=== PATIENT | female | born 1970 | race Caucasian/White ===

== ENCOUNTER → 2023-10-24 | Outpatient (CLI) | payer BC, OTHER ==
[2023-10-24 13:48] LABS: HEMATOCRIT 42.3 % (36.0-47.0); HEMOGLOBIN 13.7 g/dl (12.0-15.5); MEAN CORPUSCULAR HEMOGLOBIN 28.8 pg (27.0-33.0); MEAN CORPUSCULAR HGB CONC 32.4 g/dl (32.0-36.5); MEAN CORPUSCULAR VOLUME 88.9 fl (80.0-96.0); PLATELET COUNT, AUTOMATED 474 10^3/uL (150-450); RED BLOOD COUNT 4.76 10^6/uL (4.00-5.40); WHITE BLOOD COUNT 12.3 10^3/uL (4.0-10.0)
[2023-10-24 14:49] LABS: ALKALINE PHOSPHATASE 107 U/L (46-116); ALT/SGPT 45 U/L (7.0-40); AST/SGOT 23 U/L (<34); BILIRUBIN,TOTAL 0.5 MG/DL (0.3-1.2); BLOOD UREA NITROGEN 24 MG/DL (9-23); CALCIUM LEVEL 10.7 MG/DL (8.5-10.1); CARBON DIOXIDE LEVEL 27 MMOL/L (20-31); CHLORIDE LEVEL 99 MMOL/L (98-107); CHOLESTEROL LEVEL 211 MG/DL (<200); CHOLESTEROL RISK RATIO 4.64 (<5); CREATININE FOR GFR 0.73 MG/DL (0.55-1.30); FERRITIN 150.7 NG/ML (7.3-270.7); GLOMERULAR FILTRATION RATE > 60.0 (>51); GLUCOSE, FASTING 477 MG/DL (60-100); HDL CHOLESTEROL 45.4 MG/DL (>40); LDL CHOLESTEROL 118.2 MG/DL (<100); NON-HDL-C 165.6 MG/DL; POTASSIUM SERUM 5.1 MMOL/L (3.5-5.1); SODIUM LEVEL 132 MMOL/L (136-145); THYROID STIMULATING HORMONE 2.076 uIU/ML (0.55-4.78); TOTAL PROTEIN 8.2 G/DL (5.7-8.2); TRIGLYCERIDES LEVEL 237 MG/DL (<150)
[2023-10-24 15:04] LABS: HEMOGLOBIN A1c > 14.0 % (4.0-6.0)
== END ==
LOC: M PLALAB 11:50
PROVIDERS: ATTEND Family Medicine
DX: G25.81 Restless legs syndrome (principal)

== ENCOUNTER → 2024-02-15 | Outpatient (CLI) | payer OTHER | LOC: M RAD 10:06 | PROVIDERS: ATTEND Family Medicine | DX: Z87.891 Personal history of nicotine dependence (principal) ==

== ENCOUNTER 2024-04-10 09:14 | Day surgery (SDC) | payer OTHER ==
[~2024-04-10] VITALS: Ht 170.2 cm; Wt 96.4 kg
[~2024-04-10 09:14] MED LIST: ALBU8.5H INH; AMIT25TA19 PO; AMLO2.5T3 PO; ASPI-226 PO; B-12100010 PO; BLOO-217; CYCL5TAB PO; GABA-282 PO; INSU100I24 SC; LINZ145C PO; MONT10TA97 PO; NS 1,000 ML IV ONE; OMEG10002 PO; OMEP40CA4 PO; ONDA-282 PO; ROPI2TAB46 PO; ROSU40TA63 PO; TELM1TAB35 PO; TOUJ300I2 SC; TRUL10IN SC; XIGD1TAB3 PO; propofoL 200 MG/20 ML VIAL As Ordered ONE
[2024-04-10] MEDS ORDERED: INSULIN LISPRO (NovoLOG) PER UNIT SC PRN (10:20)
[2024-04-10] MEDS ORDERED: LIDOCAINE 2% 100MG/5ML SDV (FOR ANES.) As Ordered ONE (11:15)
[2024-04-10] MEDS ORDERED: ONDANSETRON 4MG 2ML VIAL As Ordered ONE (11:15)
[2024-04-10 11:36] VITALS: TEMP 98
[2024-04-10 12:00] VITALS: BP 175/84; O2SAT 100
== END 2024-04-10 12:13 | disposition home or self-care (01) ==
LOC: M OPP 09:14
PROVIDERS: ATTEND Internal Medicine Gastroenterology
DX: Z86.010 Personal history of colon polyps (principal); K63.5 Polyp of colon; Z87.891 Personal history of nicotine dependence; E11.9 Type 2 diabetes mellitus without complications; Z79.02 Long term (current) use of antithrombotics/antiplatelets; Z79.4 Long term (current) use of insulin; Z79.52 Long term (current) use of systemic steroids; Z79.82 Long term (current) use of aspirin; Z79.899 Other long term (current) drug therapy; Z88.5 Allergy status to narcotic agent; Z91.040 Latex allergy status
CPT/HCPCS: 45380; 88305; J2405

== ENCOUNTER → 2024-06-13 | Outpatient (REF) | payer OTHER ==
[~2024-06-13] MED LIST changes: -NS 1,000 ML IV ONE; -propofoL 200 MG/20 ML VIAL As Ordered ONE
== END ==
LOC: M SFHCPLAZ 09:53
PROVIDERS: ATTEND Family Medicine
DX: Z12.4 Encounter for screening for malignant neoplasm of cervix (principal)

== ENCOUNTER → 2024-07-18 | Outpatient (CLI) | payer OTHER ==
[~2024-07-18] MED LIST changes: -ROSU40TA63 PO; +ROSU40TA81 PO
[2024-07-18 10:08] LABS: BASO # 0.1 10^3/uL (0.0-0.2); BASO % 0.8 % (0.0-1.0); EOS # 0.1 10^3/uL (0.0-0.5); EOS % 1.1 % (0.0-3.0); HEMATOCRIT 40.8 % (36.0-47.0); HEMOGLOBIN 13.2 g/dl (12.0-15.5); LYMPH # 1.9 10^3/uL (1.5-5.0); LYMPH % 20.4 % (24.0-44.0); MEAN CORPUSCULAR HEMOGLOBIN 29.8 pg (27.0-33.0); MEAN CORPUSCULAR HGB CONC 32.4 g/dl (32.0-36.5); MEAN CORPUSCULAR VOLUME 92.1 fl (80.0-96.0); MONO # 0.9 10^3/uL (0.0-0.8); MONO % 9.4 % (2.0-8.0); NEUTROPHILS # 6.3 10^3/uL (1.5-8.5); PLATELET COUNT, AUTOMATED 391 10^3/uL (150-450); RED BLOOD COUNT 4.43 10^6/uL (4.00-5.40); WHITE BLOOD COUNT 9.4 10^3/uL (4.0-10.0)
[2024-07-18 10:38] LABS: HEMOGLOBIN A1c > 14.0 % (4.0-6.0)
[2024-07-18 10:43] LABS: ALBUMIN 3.4 G/DL (3.2-5.2); ALKALINE PHOSPHATASE 164 U/L (46-116); ALT/SGPT 44 U/L (7.0-40); AST/SGOT 31 U/L (<34); BILIRUBIN,TOTAL 0.3 MG/DL (0.3-1.2); BLOOD UREA NITROGEN 15 MG/DL (9-23); CALCIUM LEVEL 10.1 MG/DL (8.5-10.1); CARBON DIOXIDE LEVEL 26 MMOL/L (20-31); CHLORIDE LEVEL 98 MMOL/L (98-107); CREATININE FOR GFR 0.66 MG/DL (0.55-1.30); GLOMERULAR FILTRATION RATE > 60.0 (>51); GLUCOSE, FASTING 425 MG/DL (60-100); POTASSIUM SERUM 4.5 MMOL/L (3.5-5.1); SODIUM LEVEL 131 MMOL/L (136-145); TOTAL PROTEIN 7.1 G/DL (5.7-8.2)
== END ==
LOC: M PLALAB 08:17
PROVIDERS: ATTEND Family Medicine
DX: D75.839 Thrombocytosis, unspecified (principal); E11.65 Type 2 diabetes mellitus with hyperglycemia; I10 Essential (primary) hypertension; Z12.4 Encounter for screening for malignant neoplasm of cervix

== ENCOUNTER → 2024-07-18 | Outpatient (CLI) | payer OTHER | LOC: M WHC 06:44 | PROVIDERS: ATTEND Family Medicine | DX: E04.1 Nontoxic single thyroid nodule (principal); R93.5 Abnormal findings on diagnostic imaging of other abdominal regions, including retroperitoneum ==

== ENCOUNTER 2024-10-19 15:50 | Inpatient (IN) | payer OTHER ==
[~2024-10-19] VITALS: Ht 170.2 cm; Wt 92.5 kg
[~2024-10-19 15:50] MED LIST changes: -CYCL5TAB PO; +CYCL5TAB4 PO; +GABA-1172 PO; -GABA-282 PO
[2024-10-19 16:58] LABS: BASO # 0.1 10^3/uL (0.0-0.2); BASO % 0.8 % (0.0-1.0); EOS % 0.2 % (0.0-3.0); HEMATOCRIT 45.8 % (36.0-47.0); HEMOGLOBIN 14.9 g/dl (12.0-15.5); LYMPH # 2.2 10^3/uL (1.5-5.0); LYMPH % 18.9 % (24.0-44.0); MEAN CORPUSCULAR HEMOGLOBIN 29.5 pg (27.0-33.0); MEAN CORPUSCULAR HGB CONC 32.5 g/dl (32.0-36.5); MEAN CORPUSCULAR VOLUME 90.7 fl (80.0-96.0); MONO % 8.6 % (2.0-8.0); NEUTROPHILS # 8.2 10^3/uL (1.5-8.5); NEUTROPHILS % 69.4 % (36.0-66.0); PLATELET COUNT, AUTOMATED 482 10^3/uL (150-450); RED BLOOD COUNT 5.05 10^6/uL (4.00-5.40); WHITE BLOOD COUNT 11.8 10^3/uL (4.0-10.0)
[2024-10-19 18:25] LABS: LIPASE 87 U/L (12-53)
[2024-10-19 18:27] LABS: ALBUMIN 3.6 G/DL (3.2-5.2); ALKALINE PHOSPHATASE 135 U/L (35-104); ALT/SGPT 30 U/L (7.0-40); AST/SGOT 13 U/L (<34); BILIRUBIN,DIRECT < 0.1 MG/DL (<0.4); BILIRUBIN,TOTAL 0.3 MG/DL (0.3-1.2); CK-MB VALUE MASS 1.6 NG/ML (<3.6); MAGNESIUM LEVEL 2.4 MG/DL (1.8-2.4); TOTAL PROTEIN 8.5 G/DL (5.7-8.2)
[2024-10-19 18:29] LABS: THYROID STIMULATING HORMONE 2.121 uIU/ML (0.55-4.78)
[2024-10-19 18:49] LABS: CPK CREATINE PHOSPHOKINASE 64 U/L (34-145)
[2024-10-19] MEDS: methylPREDNISolone 125MG 2ML VIAL IV ONE (18:52)
[2024-10-19] MEDS: NS (Normal Saline) 0.9% 1,000 ML IV ONE (18:52)
[2024-10-19] MEDS: ALBUTEROL 90 MCG/ACT 8GM HFA INHALER INH ONE (18:54)
[2024-10-19] MEDS ORDERED: ISOVUE-370 76% 100ML VIAL As Ordered ONE (19:29)
[2024-10-19] MEDS: OMEPRAZOLE 20MG CAP PO ONE (20:15)
[2024-10-19 20:18] LABS: VENOUS BASE EXCESS -15.4 (-2.0-2.0); VENOUS HCO3 11.9 MMOL/L (23.0-27.0); VENOUS O2 SATURATION 57.3 % (60.0-80.0); VENOUS PARTIAL PRESSURE O2 32.8 mmHg (30.0-50.0); VENOUS PH 7.174 UNITS (7.330-7.430); VENOUS STANDARD HCO3 12.3 MMOL/L; VENOUS TOTAL CO2 12.9 MMOL/L (24.0-28.0)
[2024-10-19] MEDS: HumuLIN R (REGULAR) INSULIN (NovoLIN R) **100U/ML** PER UNIT IV ONE (20:20)
[2024-10-19] MEDS ORDERED: INSULIN IV RATE CHANGE DOCUMENTATION ML/HR XX SCH (21:15)
[2024-10-19 21:35] LABS: ACETONE/KETONE > 4.50 MMOL/L (0.02-0.27); BLOOD UREA NITROGEN 38 MG/DL (9-23); CARBON DIOXIDE LEVEL 11 MMOL/L (20-31); CHLORIDE LEVEL 93 MMOL/L (98-107); CREATININE FOR GFR 0.74 MG/DL (0.55-1.30); GLOMERULAR FILTRATION RATE > 60.0 (>51); GLUCOSE, FASTING 634 MG/DL (60-100); POTASSIUM SERUM 5.3 MMOL/L (3.5-5.1); SODIUM LEVEL 127 MMOL/L (136-145)
[2024-10-19 21:37] LABS: OSMOLALITY SERUM 351 MOSM/KG (275-295)
[2024-10-19 21:47] LABS: KETONE, URINE AUTO RFX 2+ mg/dL (NEGATIVE); LEUKOCYTE ESTERASE UR AUTO RFX NEGATIVE (NEGATIVE); MUCUS, URINE RFX SMALL (NEGATIVE); NITRITE, URINE AUTO RFX NEGATIVE (NEGATIVE)
[2024-10-19] MEDS: INSULIN REGULAR IN 0.9 % NACL 100 UNIT in IV 1 EA IV SCH (22:04)
[2024-10-19] MEDS ORDERED: MAALOX 30 ML SUSP *UDC PO PRN (23:30)
[2024-10-19] MEDS ORDERED: MOM 30ML SUSPENSION UDC PO PRN (23:30)
[2024-10-19] MEDS ORDERED: INSULIN REGULAR IN 0.9 % NACL 100 UNIT in IV 1 EA IV SCH (23:30)
[2024-10-20] VITALS (30 sets, daily range): BP systolic 108–163; BP diastolic 57–92; TEMP 97.2–98.3; O2SAT 96–100
[2024-10-20] MEDS: NS (Normal Saline) 0.9% 1,000 ML IV SCH (00:25)
[2024-10-20 01:11] LABS: LDH LACTATE DEHYDROGENASE 168 U/L (120-246)
[2024-10-20] MEDS ORDERED: MAGN200T PO (01:11)
[2024-10-20] MEDS ORDERED: PRED20TA PO (01:11)
[2024-10-20] MEDS ORDERED: D3 U5000 PO (01:11)
[2024-10-20] MEDS ORDERED: MULT-90 PO (01:11)
[2024-10-20] MEDS ORDERED: B-12100011 SL (01:11)
[2024-10-20 01:12] LABS: C REACTIVE PROTEIN QUANTITATIV < 0.50 MG/DL (<1.0)
[2024-10-20 01:14] LABS: FERRITIN 366.9 NG/ML (7.3-270.7)
[2024-10-20] MEDS ORDERED: HOME MED LIST COMPLETE! XX SCH (01:15)
[2024-10-20 01:23] LABS: ABG BASE EXCESS -14.6 (-2.0-2.0); ABG HCO3 9.7 MMOL/L (22.0-26.0); ABG PARTIAL PRESSURE CO2 20.8 mmHg (35.0-45.0); ABG PARTIAL PRESSURE O2 161.9 mmHg (75.0-100.0); ABG STANDARD HCO3 13.5 MMOL/L. (22.0-26.0); ABG TOTAL CO2 10.3 MMOL/L (22.0-29.0); ABG pH (ARTERIAL) 7.286 UNITS (7.350-7.450)
[2024-10-20 01:24] LABS: PROCALCITONIN 0.05 ng/ml
[2024-10-20 01:28] LABS: D-DIMER QUANT 0.95 ug/mL (<0.5)
[2024-10-20 01:29] LABS: ACETONE/KETONE > 4.50 MMOL/L (0.02-0.27)
[2024-10-20] MEDS: INSULIN IV RATE CHANGE DOCUMENTATION ML/HR XX SCH (02:08)
[2024-10-20] MEDS: ACETAMINOPHEN 325 MG TAB PO PRN (03:15)
[2024-10-20 04:52] LABS: BLOOD UREA NITROGEN 31 MG/DL (9-23); CALCIUM LEVEL 10.6 MG/DL (8.5-10.1); CARBON DIOXIDE LEVEL 17 MMOL/L (20-31); CHLORIDE LEVEL 105 MMOL/L (98-107); CREATININE FOR GFR 0.62 MG/DL (0.55-1.30); GLOMERULAR FILTRATION RATE > 60.0 (>51); GLUCOSE, FASTING 175 MG/DL (60-100); MAGNESIUM LEVEL 1.9 MG/DL (1.8-2.4); PHOSPHORUS LEVEL 1.9 MG/DL (2.5-4.9); POTASSIUM SERUM 5.9 MMOL/L (3.5-5.1); SODIUM LEVEL 136 MMOL/L (136-145)
[2024-10-20 05:13] LABS: OSMOLALITY SERUM 315 MOSM/KG (275-295)
[2024-10-20] MEDS ORDERED: predniSONE 20 MG TAB PO SCH (05:15)
[2024-10-20] MEDS ORDERED: ALBUTEROL 90 MCG/ACT 8GM HFA INHALER INH PRN (05:15)
[2024-10-20] MEDS ORDERED: D5W/0.9% SODIUM CHLORIDE 1,000 ML IV SCH (05:25)
[2024-10-20] MEDS: HEPARIN SOD (PORCINE) 5000UNITS/ML 1ML VIAL/SYRINGE SC SCH (05:38)
[2024-10-20] MEDS: ONDANSETRON 4MG 2ML VIAL IV ONE (05:38)
[2024-10-20] MEDS: D5W/0.9% SODIUM CHLORIDE 1,000 ML IV SCH (05:38)
[2024-10-20 06:01] LABS: HEMOGLOBIN A1c > 14.0 % (4.0-6.0)
[2024-10-20 07:49] LABS: VENOUS BASE EXCESS -11.1 (-2.0-2.0); VENOUS HCO3 14.7 MMOL/L (23.0-27.0); VENOUS O2 SATURATION 96.4 % (60.0-80.0); VENOUS PARTIAL PRESSURE O2 93.5 mmHg (30.0-50.0); VENOUS PH 7.267 UNITS (7.330-7.430); VENOUS STANDARD HCO3 15.9 MMOL/L; VENOUS TOTAL CO2 15.7 MMOL/L (24.0-28.0)
[2024-10-20 08:30] LABS: BLOOD UREA NITROGEN 28 MG/DL (9-23); CALCIUM LEVEL 10.3 MG/DL (8.5-10.1); CARBON DIOXIDE LEVEL 18 MMOL/L (20-31); CHLORIDE LEVEL 105 MMOL/L (98-107); CREATININE FOR GFR 0.54 MG/DL (0.55-1.30); GLOMERULAR FILTRATION RATE > 60.0 (>51); GLUCOSE, FASTING 144 MG/DL (60-100); POTASSIUM SERUM 4.1 MMOL/L (3.5-5.1); SODIUM LEVEL 136 MMOL/L (136-145)
[2024-10-20] MEDS ORDERED: GLUCOSE 4 GM CHEW PO PRN (08:50)
[2024-10-20] MEDS ORDERED: DEXTROSE 50% 50ML SYRINGE IV PRN (08:50)
[2024-10-20] MEDS ORDERED: INSULIN IV RATE CHANGE DOCUMENTATION ML/HR XX SCH (08:50)
[2024-10-20] MEDS ORDERED: GLUCAGON INJ 1MG VIAL SC PRN (08:50)
[2024-10-20] MEDS ORDERED: LEVEMIR (INSULIN DETEMIR) 1 UNITS/0.01ML SC SCH ×2 (09:00→21:00)
[2024-10-20] MEDS: OMEGA-3 1000MG CAPSULE PO SCH (09:21)
[2024-10-20] MEDS: PANTOPRAZOLE 40MG VIAL IV SCH (09:21)
[2024-10-20] MEDS: MONTELUKAST 10 MG TAB PO SCH (09:21)
[2024-10-20] MEDS: ASPIRIN 81MG ENTERIC TABLET PO SCH (09:21)
[2024-10-20] MEDS: TELMISARTAN 20 MG TAB PO SCH (09:21)
[2024-10-20] MEDS: DOCUSATE SODIUM 100MG CAPSULE PO SCH (09:21)
[2024-10-20] MEDS: INSULIN REGULAR IN 0.9 % NACL 100 UNIT in IV 1 EA IV SCH (09:28)
[2024-10-20] MEDS: KCL 20MEQ IN D5/0.45NS 1000ML 1,000 ML IV SCH (09:35)
[2024-10-20] MEDS: INSULIN LISPRO (NovoLOG) PER UNIT SC ONE (10:15)
[2024-10-20] MEDS: LEVEMIR (INSULIN DETEMIR) 1 UNITS/0.01ML SC SCH ×2 (11:00→20:08)
[2024-10-20 11:14] LABS: VENOUS BASE EXCESS -11.2 (-2.0-2.0); VENOUS HCO3 15.1 MMOL/L (23.0-27.0); VENOUS O2 SATURATION 99.3 % (60.0-80.0); VENOUS PARTIAL PRESSURE CO2 35.3 mmHg (38.0-50.0); VENOUS PARTIAL PRESSURE O2 219.2 mmHg (30.0-50.0); VENOUS PH 7.248 UNITS (7.330-7.430); VENOUS STANDARD HCO3 15.7 MMOL/L; VENOUS TOTAL CO2 16.1 MMOL/L (24.0-28.0)
[2024-10-20] MEDS: SODIUM PHOSPHATE INJ 20 MMOL in D5W 250 ML IV ONE (11:20)
[2024-10-20 11:43] LABS: BLOOD UREA NITROGEN 27 MG/DL (9-23); CALCIUM LEVEL 9.6 MG/DL (8.5-10.1); CARBON DIOXIDE LEVEL 15 MMOL/L (20-31); CHLORIDE LEVEL 105 MMOL/L (98-107); CREATININE FOR GFR 0.59 MG/DL (0.55-1.30); GLOMERULAR FILTRATION RATE > 60.0 (>51); GLUCOSE, FASTING 286 MG/DL (60-100); POTASSIUM SERUM 4.6 MMOL/L (3.5-5.1); SODIUM LEVEL 135 MMOL/L (136-145)
[2024-10-20] MEDS ORDERED: INSULIN LISPRO (NovoLOG) PER UNIT SC SCH ×2 (12:00→21:00)
[2024-10-20] MEDS: INSULIN LISPRO (NovoLOG) PER UNIT SC SCH ×2 (12:00)
[2024-10-20 14:08] LABS: VENOUS BASE EXCESS -10.1 (-2.0-2.0); VENOUS HCO3 16.4 MMOL/L (23.0-27.0); VENOUS O2 SATURATION 89.4 % (60.0-80.0); VENOUS PARTIAL PRESSURE CO2 38.3 mmHg (38.0-50.0); VENOUS PARTIAL PRESSURE O2 60.7 mmHg (30.0-50.0); VENOUS PH 7.249 UNITS (7.330-7.430); VENOUS STANDARD HCO3 16.4 MMOL/L; VENOUS TOTAL CO2 17.6 MMOL/L (24.0-28.0)
[2024-10-20 14:46] LABS: ACETONE/KETONE 1.55 MMOL/L (0.02-0.27); BLOOD UREA NITROGEN 26 MG/DL (9-23); CALCIUM LEVEL 9.7 MG/DL (8.5-10.1); CARBON DIOXIDE LEVEL 17 MMOL/L (20-31); CHLORIDE LEVEL 102 MMOL/L (98-107); CREATININE FOR GFR 0.53 MG/DL (0.55-1.30); GLOMERULAR FILTRATION RATE > 60.0 (>51); GLUCOSE, FASTING 317 MG/DL (60-100); POTASSIUM SERUM 3.9 MMOL/L (3.5-5.1); SODIUM LEVEL 133 MMOL/L (136-145)
[2024-10-20 16:48] LABS: VENOUS BASE EXCESS -6.6 (-2.0-2.0); VENOUS HCO3 17.7 MMOL/L (23.0-27.0); VENOUS PARTIAL PRESSURE O2 224.8 mmHg (30.0-50.0); VENOUS PH 7.361 UNITS (7.330-7.430); VENOUS STANDARD HCO3 19.2 MMOL/L; VENOUS TOTAL CO2 18.7 MMOL/L (24.0-28.0)
[2024-10-20 17:27] LABS: BLOOD UREA NITROGEN 17 MG/DL (9-23); CARBON DIOXIDE LEVEL 17 MMOL/L (20-31); CHLORIDE LEVEL 105 MMOL/L (98-107); GLOMERULAR FILTRATION RATE > 60.0 (>51); GLUCOSE, FASTING 195 MG/DL (60-100); POTASSIUM SERUM 3.4 MMOL/L (3.5-5.1); SODIUM LEVEL 134 MMOL/L (136-145)
[2024-10-20] MEDS: POTASSIUM CHLORIDE 10MEQ SR TABLET PO ONE (18:01)
[2024-10-20 19:41] LABS: BLOOD UREA NITROGEN 22 MG/DL (9-23); CALCIUM LEVEL 10.2 MG/DL (8.5-10.1); CARBON DIOXIDE LEVEL 19 MMOL/L (20-31); CHLORIDE LEVEL 104 MMOL/L (98-107); GLOMERULAR FILTRATION RATE > 60.0 (>51); GLUCOSE, FASTING 152 MG/DL (60-100); POTASSIUM SERUM 3.8 MMOL/L (3.5-5.1); SODIUM LEVEL 136 MMOL/L (136-145)
[2024-10-20] MEDS: GABAPENTIN 300 MG CAP PO SCH (20:09)
[2024-10-20] MEDS: AMITRIPTYLINE 25MG TABLET PO SCH (20:09)
[2024-10-20] MEDS: ROSUVASTATIN 10 MG TAB (CRESTOR) PO SCH (20:09)
[2024-10-20] MEDS: rOPINIRole 2MG TAB PO SCH (20:09)
[2024-10-21] VITALS (19 sets, daily range): BP systolic 103–128; BP diastolic 56–76; TEMP 96.8–98; O2SAT 95–100
[2024-10-21 00:12] LABS: BLOOD UREA NITROGEN 19 MG/DL (9-23); CALCIUM LEVEL 9.6 MG/DL (8.5-10.1); CARBON DIOXIDE LEVEL 18 MMOL/L (20-31); CHLORIDE LEVEL 105 MMOL/L (98-107); CREATININE FOR GFR 0.51 MG/DL (0.55-1.30); GLOMERULAR FILTRATION RATE > 60.0 (>51); GLUCOSE, FASTING 206 MG/DL (60-100); POTASSIUM SERUM 3.9 MMOL/L (3.5-5.1); SODIUM LEVEL 134 MMOL/L (136-145)
[2024-10-21 03:13] LABS: BLOOD UREA NITROGEN 18 MG/DL (9-23); CALCIUM LEVEL 9.4 MG/DL (8.5-10.1); CARBON DIOXIDE LEVEL 17 MMOL/L (20-31); CHLORIDE LEVEL 104 MMOL/L (98-107); CREATININE FOR GFR 0.54 MG/DL (0.55-1.30); GLOMERULAR FILTRATION RATE > 60.0 (>51); GLUCOSE, FASTING 241 MG/DL (60-100); POTASSIUM SERUM 3.8 MMOL/L (3.5-5.1); SODIUM LEVEL 134 MMOL/L (136-145)
[2024-10-21 05:56] LABS: HEMATOCRIT 36.6 % (36.0-47.0); MEAN CORPUSCULAR HEMOGLOBIN 29.5 pg (27.0-33.0); MEAN CORPUSCULAR HGB CONC 34.2 g/dl (32.0-36.5); MEAN CORPUSCULAR VOLUME 86.3 fl (80.0-96.0); PLATELET COUNT, AUTOMATED 338 10^3/uL (150-450); RED BLOOD COUNT 4.24 10^6/uL (4.00-5.40); WHITE BLOOD COUNT 8.2 10^3/uL (4.0-10.0)
[2024-10-21 05:59] LABS: HEMOGLOBIN 12.5 g/dl (12.0-15.5)
[2024-10-21 06:26] LABS: ALBUMIN 2.6 G/DL (3.2-5.2); ALKALINE PHOSPHATASE 86 U/L (35-104); ALT/SGPT 30 U/L (7.0-40); AST/SGOT 34 U/L (<34); BILIRUBIN,TOTAL 0.3 MG/DL (0.3-1.2); BLOOD UREA NITROGEN 16 MG/DL (9-23); CALCIUM LEVEL 9.5 MG/DL (8.5-10.1); CARBON DIOXIDE LEVEL 20 MMOL/L (20-31); CHLORIDE LEVEL 106 MMOL/L (98-107); CREATININE FOR GFR 0.55 MG/DL (0.55-1.30); GLOMERULAR FILTRATION RATE > 60.0 (>51); GLUCOSE, FASTING 196 MG/DL (60-100); POTASSIUM SERUM 3.8 MMOL/L (3.5-5.1); SODIUM LEVEL 135 MMOL/L (136-145)
[2024-10-21] MEDS: LEVEMIR (INSULIN DETEMIR) 1 UNITS/0.01ML SC ONE (06:59)
[2024-10-21] MEDS ORDERED: DEXTROSE 50% 50ML SYRINGE IV PRN (08:15)
[2024-10-21] MEDS ORDERED: GLUCAGON INJ 1MG VIAL SC PRN (08:15)
[2024-10-21] MEDS ORDERED: GLUCOSE 4 GM CHEW PO PRN (08:15)
[2024-10-21] MEDS: INSULIN LISPRO (NovoLOG) PER UNIT SC SCH ×4 (09:24→19:51)
[2024-10-21] MEDS: LEVEMIR (INSULIN DETEMIR) 1 UNITS/0.01ML SC SCH ×2 (09:24→19:51)
[2024-10-21] MEDS ORDERED: INSULIN LISPRO (NovoLOG) PER UNIT SC SCH ×2 (12:00)
[2024-10-21] MEDS ORDERED: LEVEMIR (INSULIN DETEMIR) 1 UNITS/0.01ML SC SCH ×2 (21:00)
[2024-10-22 04:08] VITALS: BP 108/57; TEMP 98.2; O2SAT 96
[2024-10-22 07:41] LABS: HEMATOCRIT 34.1 % (36.0-47.0); HEMOGLOBIN 11.5 g/dl (12.0-15.5); MEAN CORPUSCULAR HEMOGLOBIN 29.6 pg (27.0-33.0); MEAN CORPUSCULAR HGB CONC 33.7 g/dl (32.0-36.5); MEAN CORPUSCULAR VOLUME 87.9 fl (80.0-96.0); PLATELET COUNT, AUTOMATED 294 10^3/uL (150-450); RED BLOOD COUNT 3.88 10^6/uL (4.00-5.40); WHITE BLOOD COUNT 7.8 10^3/uL (4.0-10.0)
[2024-10-22 08:16] LABS: ALBUMIN 2.4 G/DL (3.2-5.2); ALKALINE PHOSPHATASE 95 U/L (35-104); ALT/SGPT 32 U/L (7.0-40); AST/SGOT 27 U/L (<34); BILIRUBIN,TOTAL 0.2 MG/DL (0.3-1.2); BLOOD UREA NITROGEN 15 MG/DL (9-23); CALCIUM LEVEL 8.9 MG/DL (8.5-10.1); CARBON DIOXIDE LEVEL 21 MMOL/L (20-31); CHLORIDE LEVEL 104 MMOL/L (98-107); CREATININE FOR GFR 0.59 MG/DL (0.55-1.30); GLOMERULAR FILTRATION RATE > 60.0 (>51); GLUCOSE, FASTING 341 MG/DL (60-100); SODIUM LEVEL 134 MMOL/L (136-145); TOTAL PROTEIN 5.4 G/DL (5.7-8.2)
[2024-10-22 11:59] VITALS: BP 106/65; TEMP 97.7; O2SAT 98
[2024-10-22 20:17] VITALS: BP 114/60; TEMP 97.3; O2SAT 97
[2024-10-22] MEDS: LEVEMIR (INSULIN DETEMIR) 1 UNITS/0.01ML SC SCH (20:55)
[2024-10-23 04:14] VITALS: BP 102/53; TEMP 97.4; O2SAT 98
[2024-10-23 07:23] LABS: HEMATOCRIT 34.9 % (36.0-47.0); HEMOGLOBIN 11.5 g/dl (12.0-15.5); MEAN CORPUSCULAR HEMOGLOBIN 29.1 pg (27.0-33.0); MEAN CORPUSCULAR VOLUME 88.4 fl (80.0-96.0); PLATELET COUNT, AUTOMATED 274 10^3/uL (150-450); RED BLOOD COUNT 3.95 10^6/uL (4.00-5.40); WHITE BLOOD COUNT 8.1 10^3/uL (4.0-10.0)
[2024-10-23 07:48] LABS: ALBUMIN 2.3 G/DL (3.2-5.2); ALKALINE PHOSPHATASE 80 U/L (35-104); ALT/SGPT 27 U/L (7.0-40); AST/SGOT 23 U/L (<34); BILIRUBIN,TOTAL 0.2 MG/DL (0.3-1.2); BLOOD UREA NITROGEN 10 MG/DL (9-23); CALCIUM LEVEL 9.4 MG/DL (8.5-10.1); CARBON DIOXIDE LEVEL 28 MMOL/L (20-31); CHLORIDE LEVEL 103 MMOL/L (98-107); CREATININE FOR GFR 0.55 MG/DL (0.55-1.30); GLOMERULAR FILTRATION RATE > 60.0 (>51); GLUCOSE, FASTING 240 MG/DL (60-100); POTASSIUM SERUM 4.3 MMOL/L (3.5-5.1); SODIUM LEVEL 137 MMOL/L (136-145); TOTAL PROTEIN 5.4 G/DL (5.7-8.2)
[2024-10-23 12:00] VITALS: BP 120/59; TEMP 97.1; O2SAT 98
== END 2024-10-23 13:00 | disposition home or self-care (01) | DRG 420 ==
LOC: M ED 15:50 → M ED INP 22:10 → M ICU 10-20 00:51 → M MS4PR 10-21 16:45
PROVIDERS: ADMIT Student in an Organized Health Care Education/Training Program; ATTEND Family Medicine
DX: E11.10 Type 2 diabetes mellitus with ketoacidosis without coma (principal); U07.1 COVID-19; I10 Essential (primary) hypertension; J44.9 Chronic obstructive pulmonary disease, unspecified; J45.909 Unspecified asthma, uncomplicated; K21.9 Gastro-esophageal reflux disease without esophagitis; T38.3X6A Underdosing of insulin and oral hypoglycemic [antidiabetic] drugs, initial encounter; E11.51 Type 2 diabetes mellitus with diabetic peripheral angiopathy without gangrene; G25.81 Restless legs syndrome; G47.00 Insomnia, unspecified; E78.5 Hyperlipidemia, unspecified; E04.1 Nontoxic single thyroid nodule; Z79.4 Long term (current) use of insulin; Z79.82 Long term (current) use of aspirin; Z91.148 Patient's other noncompliance with medication regimen for other reason; Z79.899 Other long term (current) drug therapy; Z90.5 Acquired absence of kidney; Z88.5 Allergy status to narcotic agent; Z91.040 Latex allergy status; Z85.528 Personal history of other malignant neoplasm of kidney; Z87.891 Personal history of nicotine dependence

== ENCOUNTER → 2025-06-25 | Outpatient (CLI) | payer MEDICAID, OTHER ==
[~2025-06-25] MED LIST changes: +ALEV220T22 PO; +B-12100011 SL; +D3 U5000 PO; +MAGN200T PO; +MULT-90 PO; +PRED20TA PO
[2025-06-25 14:32] LABS: ESTIMATED AVERAGE GLUCOSE 326.0 MG/DL (60-110)
[2025-06-25 14:44] LABS: ALT/SGPT 36 U/L (7.0-40); AST/SGOT 26 U/L (<34); CALCIUM LEVEL 10.0 MG/DL (8.5-10.1); CARBON DIOXIDE LEVEL 30 MMOL/L (20-31); CHLORIDE LEVEL 97 MMOL/L (98-107); CHOLESTEROL LEVEL 146 MG/DL (<200); CHOLESTEROL RISK RATIO 4.67 (<5); CREATININE FOR GFR 0.72 MG/DL (0.55-1.30); GLOMERULAR FILTRATION RATE > 90.0 (>51); NON-HDL-C 114.8 MG/DL; POTASSIUM SERUM 4.8 MMOL/L (3.5-5.1); SODIUM LEVEL 137 MMOL/L (136-145); TRIGLYCERIDES LEVEL 419 MG/DL (<150)
== END ==
LOC: M PLALAB 10:02
PROVIDERS: ATTEND Family Medicine
DX: E11.65 Type 2 diabetes mellitus with hyperglycemia (principal)

== ENCOUNTER → 2025-08-12 | Outpatient (CLI) | payer MEDICAID, OTHER | LOC: M RAD 13:35 | PROVIDERS: ATTEND Family Medicine | DX: E04.1 Nontoxic single thyroid nodule (principal) ==

== ENCOUNTER → 2025-08-28 | Outpatient (CLI) | payer OTHER ==
[2025-08-28 07:45] VITALS: TEMP 97
[2025-08-28 08:23] VITALS: BP 147/85; O2SAT 95
[2025-08-28] MEDS: LIDOCAINE 1% MDV 20 ML VIAL SC ONE (08:42)
== END ==
LOC: M IRPRO 07:38
PROVIDERS: ATTEND Family Medicine
DX: E04.1 Nontoxic single thyroid nodule (principal)

== ENCOUNTER 2025-09-29 18:21 | Inpatient (IN) | payer OTHER ==
[~2025-09-29] VITALS: Ht 170.2 cm; Wt 106.7 kg
[2025-09-29 19:50] LABS: BASO # 0.1 10^3/uL (0.0-0.2); BASO % 0.5 % (0.0-1.0); EOS # 0.1 10^3/uL (0.0-0.5); EOS % 0.6 % (0.0-3.0); LYMPH # 2.7 10^3/uL (1.5-5.0); LYMPH % 14.4 % (24.0-44.0); MONO # 1.2 10^3/uL (0.0-0.8); MONO % 6.6 % (2.0-8.0); NEUTROPHILS # 14.3 10^3/uL (1.5-8.5); NEUTROPHILS % 76.8 % (36.0-66.0); PLATELET COUNT, AUTOMATED 462 10^3/uL (150-450)
[2025-09-29 19:56] LABS: KETONE, URINE AUTO RFX NEGATIVE (NEGATIVE); MUCUS, URINE RFX SMALL (NEGATIVE); NITRITE, URINE AUTO RFX NEGATIVE (NEGATIVE); RBC, URINE AUTO RFX 136 /HPF (0-3); SQUAM EPITHELIAL CELL UR AURFX 6 /HPF (0-6)
[2025-09-29 19:57] LABS: LEUKOCYTE ESTERASE UR AUTO RFX 2+ (NEGATIVE); WBC, URINE AUTO RFX TNTC /HPF (0-3)
[2025-09-29 20:17] LABS: CALCIUM LEVEL 9.6 MG/DL (8.5-10.1); CARBON DIOXIDE LEVEL 27 MMOL/L (20-31); CHLORIDE LEVEL 100 MMOL/L (98-107); CREATININE FOR GFR 0.69 MG/DL (0.55-1.30); GLOMERULAR FILTRATION RATE > 90.0 (>51); POTASSIUM SERUM 4.6 MMOL/L (3.5-5.1); SODIUM LEVEL 137 MMOL/L (136-145)
[2025-09-29] MEDS: NS (Normal Saline) 0.9% 1,000 ML IV ONE (20:29)
[2025-09-29] MEDS ORDERED: ISOVUE-370 76% 100 ML VIAL As Ordered ONE (20:47)
[2025-09-29] MEDS: ACETAMINOPHEN *IV* 1,000 MG in IV 1 EA IV ONE (23:11)
[2025-09-29] MEDS ORDERED: GLUCAGON INJ 1 MG VIAL SC PRN (23:25)
[2025-09-29] MEDS ORDERED: ONDANSETRON 4MG/2ML VIAL IV PRN (23:25)
[2025-09-29] MEDS ORDERED: DEXTROSE 50% 50 ML SYRINGE IV PRN (23:25)
[2025-09-29] MEDS ORDERED: GLUCOSE 4 GM CHEW PO PRN (23:25)
[2025-09-29] MEDS ORDERED: MOM 30 ML SUSPENSION UDC PO PRN (23:25)
[2025-09-29] MEDS ORDERED: ACETAMINOPHEN 325 MG TAB PO PRN (23:25)
[2025-09-29] MEDS: cefTRIAXone SOD 1 GM in DEXTROSE 5% (D5W) ADV/MINI-BAG 50 ML IV ONE (23:31)
[2025-09-29] MEDS ORDERED: HOME MED LIST COMPLETE! XX SCH (23:50)
[2025-09-29] MEDS ORDERED: CYCL5TAB4 PO (23:50)
[2025-09-29] MEDS ORDERED: DULA4.5P SC (23:50)
[2025-09-29] MEDS ORDERED: GLIP-320 PO (23:50)
[2025-09-30] MEDS: GABAPENTIN 300 MG CAP PO SCH (00:31)
[2025-09-30] MEDS: INSULIN LISPRO (NovoLOG) PER UNIT SC SCH ×2 (00:31→07:55)
[2025-09-30] MEDS: NS (Normal Saline) 0.9% 1,000 ML IV SCH (00:31)
[2025-09-30 06:53] LABS: PLATELET COUNT, AUTOMATED 376 10^3/uL (150-450)
[2025-09-30 07:15] LABS: ALT/SGPT 27 U/L (7.0-40); AST/SGOT 16 U/L (<34); CALCIUM LEVEL 9.0 MG/DL (8.5-10.1); CARBON DIOXIDE LEVEL 27 MMOL/L (20-31); CHLORIDE LEVEL 105 MMOL/L (98-107); CREATININE FOR GFR 0.64 MG/DL (0.55-1.30); GLOMERULAR FILTRATION RATE > 90.0 (>51); MAGNESIUM LEVEL 1.6 MG/DL (1.8-2.4); POTASSIUM SERUM 3.9 MMOL/L (3.5-5.1); SODIUM LEVEL 140 MMOL/L (136-145)
[2025-09-30] MEDS: ENOXAPARIN 40 MG/0.4 ML SYRINGE (J1650 PER 10MG) SC SCH (07:54)
[2025-09-30] MEDS: ASPIRIN 81 MG ENTERIC TABLET PO SCH (07:55)
[2025-09-30] MEDS: MAG SULF 1GM/100ML (MAG RUN) 1 GM in IV 1 EA IV ONE (09:39)
[2025-09-30] MEDS: OMEPRAZOLE 20MG CAP PO SCH (09:40)
[2025-09-30 14:45] VITALS: BP 135/73; TEMP 98.5; O2SAT 96
[2025-09-30] MEDS: AMITRIPTYLINE 25 MG TABLET PO SCH (20:21)
[2025-09-30] MEDS: ROSUVASTATIN 10 MG TAB PO SCH (20:22)
[2025-09-30 20:32] VITALS: BP 136/65; TEMP 98.2; O2SAT 97
[2025-10-01] MEDS: cefTRIAXone SOD 2 GM in DEXTROSE 5% (D5W) ADV/MINI-BAG 50 ML IV SCH (01:31)
[2025-10-01 07:00] VITALS: BP 157/88; TEMP 97.9; O2SAT 98
[2025-10-01 07:09] LABS: BASO # 0.1 10^3/uL (0.0-0.2); BASO % 0.5 % (0.0-1.0); EOS # 0.2 10^3/uL (0.0-0.5); EOS % 1.6 % (0.0-3.0); LYMPH # 2.9 10^3/uL (1.5-5.0); LYMPH % 31.3 % (24.0-44.0); MONO # 0.9 10^3/uL (0.0-0.8); MONO % 9.2 % (2.0-8.0); NEUTROPHILS # 5.1 10^3/uL (1.5-8.5); NEUTROPHILS % 55.2 % (36.0-66.0); PLATELET COUNT, AUTOMATED 403 10^3/uL (150-450)
[2025-10-01 07:30] LABS: CALCIUM LEVEL 9.0 MG/DL (8.5-10.1); CARBON DIOXIDE LEVEL 23 MMOL/L (20-31); CHLORIDE LEVEL 102 MMOL/L (98-107); CREATININE FOR GFR 0.52 MG/DL (0.55-1.30); GLOMERULAR FILTRATION RATE > 90.0 (>51); MAGNESIUM LEVEL 1.6 MG/DL (1.8-2.4); POTASSIUM SERUM 4.3 MMOL/L (3.5-5.1); SODIUM LEVEL 135 MMOL/L (136-145)
[2025-10-01 08:54] LABS: ESTIMATED AVERAGE GLUCOSE 321.0 MG/DL (60-110)
[2025-10-01] MEDS ORDERED: CEFD1CAP9 PO (09:15)
[2025-10-01] MEDS: MAG SULF 1GM/100ML (MAG RUN) 1 GM in IV 1 EA IV ONE (09:33)
[2025-10-01] MEDS: CEFDINIR 300 MG CAP PO SCH (09:33)
== END 2025-10-01 11:17 | disposition home or self-care (01) | DRG 720 ==
LOC: M ED 18:21 → M ED INP 23:23 → M MS5PR 09-30 14:33
PROVIDERS: ADMIT Internal Medicine; ATTEND Internal Medicine
DX: A41.9 Sepsis, unspecified organism (principal); E11.42 Type 2 diabetes mellitus with diabetic polyneuropathy; E11.51 Type 2 diabetes mellitus with diabetic peripheral angiopathy without gangrene; E66.01 Morbid (severe) obesity due to excess calories; I10 Essential (primary) hypertension; E78.5 Hyperlipidemia, unspecified; I73.9 Peripheral vascular disease, unspecified; R31.9 Hematuria, unspecified; N39.0 Urinary tract infection, site not specified; K21.9 Gastro-esophageal reflux disease without esophagitis; Z79.82 Long term (current) use of aspirin; Z79.4 Long term (current) use of insulin; Z79.899 Other long term (current) drug therapy; Z88.5 Allergy status to narcotic agent; Z91.040 Latex allergy status; Z85.528 Personal history of other malignant neoplasm of kidney; Z90.5 Acquired absence of kidney; Z86.718 Personal history of other venous thrombosis and embolism; Z90.49 Acquired absence of other specified parts of digestive tract; Z87.891 Personal history of nicotine dependence

== ENCOUNTER 2025-10-19 12:40 | Emergency (ER) | payer MEDICAID, OTHER ==
[~2025-10-19] VITALS: Ht 170.2 cm; Wt 104.9 kg
[~2025-10-19 12:40] MED LIST changes: +CEFD1CAP9 PO; +DULA4.5P SC; +GLIP-320 PO
[2025-10-19 12:51] VITALS: TEMP 97.4
[2025-10-19 13:09] LABS: KETONE, URINE AUTO RFX NEGATIVE (NEGATIVE); LEUKOCYTE ESTERASE UR AUTO RFX NEGATIVE (NEGATIVE); NITRITE, URINE AUTO RFX NEGATIVE (NEGATIVE); RBC, URINE AUTO RFX 33 /HPF (0-3); SQUAM EPITHELIAL CELL UR AURFX 0 /HPF (0-6)
[2025-10-19 13:10] LABS: WBC, URINE AUTO RFX 41 /HPF (0-3)
[2025-10-19 14:58] LABS: BASO # 0.1 10^3/uL (0.0-0.2); BASO % 0.5 % (0.0-1.0); EOS # 0.1 10^3/uL (0.0-0.5); EOS % 0.9 % (0.0-3.0); LYMPH # 3.0 10^3/uL (1.5-5.0); LYMPH % 22.2 % (24.0-44.0); MONO # 1.2 10^3/uL (0.0-0.8); MONO % 8.6 % (2.0-8.0); NEUTROPHILS # 8.9 10^3/uL (1.5-8.5); NEUTROPHILS % 66.9 % (36.0-66.0); PLATELET COUNT, AUTOMATED 479 10^3/uL (150-450)
[2025-10-19] MEDS: ONDANSETRON 4MG ORAL DISINTEGRATING TAB PO ONE (15:04)
[2025-10-19 15:31] LABS: CALCIUM LEVEL 10.7 MG/DL (8.5-10.1); CARBON DIOXIDE LEVEL 29 MMOL/L (20-31); CHLORIDE LEVEL 100 MMOL/L (98-107); CREATININE FOR GFR 0.70 MG/DL (0.55-1.30); GLOMERULAR FILTRATION RATE > 90.0 (>51); POTASSIUM SERUM 4.5 MMOL/L (3.5-5.1); SODIUM LEVEL 138 MMOL/L (136-145)
[2025-10-19] MEDS ORDERED: CIPR-249 PO (15:49)
[2025-10-19] MEDS ORDERED: ONDA-282 PO (15:49)
[2025-10-19 15:56] VITALS: BP 171/81; O2SAT 99
== END 2025-10-19 15:57 | disposition home or self-care (01) ==
LOC: M ED 12:40
DX: N10 Acute pyelonephritis (principal); E11.9 Type 2 diabetes mellitus without complications; I10 Essential (primary) hypertension; Z88.5 Allergy status to narcotic agent; Z91.040 Latex allergy status; Z79.51 Long term (current) use of inhaled steroids; Z79.1 Long term (current) use of non-steroidal anti-inflammatories (NSAID); Z79.2 Long term (current) use of antibiotics; Z79.4 Long term (current) use of insulin; Z79.899 Other long term (current) drug therapy; Z79.810 Long term (current) use of selective estrogen receptor modulators (SERMs)